=== PATIENT | male | born 1950 | race Caucasian/White ===

== ENCOUNTER → 2019-08-19 | Outpatient (CLI) | payer MEDICARE, OTHER ==
[~2019-08-19] MED LIST: ASPI325T8 PO; ATOR20TA58 PO; CALC-178 PO; CARV40CP PO; LISI-334 PO
== END | disposition home or self-care (01) ==
LOC: LAB 11:04
PROVIDERS: ATTEND Registered Nurse
DX: Z11.59 Encounter for screening for other viral diseases (principal)
CPT/HCPCS: C9803; U0003; 87426

== ENCOUNTER → 2019-08-22 | Day surgery (SDC) | payer MEDICARE, OTHER ==
[~2019-08-22] MED LIST changes: +IV RINGERS SOLUTION,LACTATED 1,000 ML IV SCH; +ONDANSETRON PF 4 MG/2 ML VIAL. IV PRN; +PROPOFOL 10,000 MCG/ML (20ML) VIAL IV ONE
[2019-08-22 11:35] VITALS: BP 137/72
--- NOTE | 2019-08-23 17:07 | PATHOLOGY ---
[facility] Accession Number: [id number] . 01 Material submitted: . colon - SIGMOID BIOPSY. Modifiers: sigmoid . 01 Clinical history: . Colon cancer screening . 02 Diagnosis: Colonic mucosa, sigmoid colon biopsies: - Focal active colitis. LBQ 08/23/2019 1522 Local . 02 Comment: Sections of the sigmoid colon biopsy reveal several segments of colonic mucosa showing focal active inflammation, the latter consisting of scattered foci of acute crypt neutrophilic injury. Features of a chronic destruction colitis, including crypt architectural distortion and basally oriented chronic inflammatory cell infiltrate are not identified. There are no granulomas. The findings may represent diverticular associated inflammation. There is no dysplasia or evidence of malignancy. (JPM/db; 08/23/2019) . 02 Electronically signed: . Jayson Bailey MD, Pathologist NPI- [id number] . 01 Gross description: . The specimen is received in formalin, labeled "Roel Santos, sigmoid biopsy". Received are three segments of pale parker soft tissue ranging in size from 0.3 to 0.4 cm in maximum dimensions. The specimen is submitted entirely in cassette A1. (CAA; 08/22/2019) QA/QA 08/22/2019 1653 Local . 02 Pathologist provided ICD-10: K52.9 . 02 CPT . 329524 Specimen Comment: A courtesy copy of this report has been sent to [phone] Specimen Comment: [id number] Specimen Comment: Report sent to DR COLVIN / DR LUCAS Performed at: 01 [facility] [address], [place], [place] [id number] MD Estuardo Koehler MD Phone: [phone] Performed at: 02 [facility] [address], [place] [id number] MD Jayson Bailey MD Phone: [phone]
--- NOTE | 2019-08-27 13:15 | NUR ---
AFTER SPEAKING TO FOUND OUT THAT PT WAS ADMITTED TO THE HOSPITAL. I CALLED DR. COLVIN'S OFFICE JUST TO BE SURE THEY WERE AWARE OF THE PTS ADMISSION AND VALERIE SAID THEY WERE THE ONES WHO SET UP THE CT SCAN AND ADMISSION SO THE OFFICE WAS AWARE OF THE SITUATION.
== END | disposition home or self-care (01) ==
LOC: SURG 09:24
PROVIDERS: ATTEND Internal Medicine Gastroenterology
DX: K57.32 Diverticulitis of large intestine without perforation or abscess without bleeding (principal); K64.8 Other hemorrhoids; K57.30 Diverticulosis of large intestine without perforation or abscess without bleeding; K51.80 Other ulcerative colitis without complications; E78.00 Pure hypercholesterolemia, unspecified; I10 Essential (primary) hypertension; Z79.82 Long term (current) use of aspirin; Z79.899 Other long term (current) drug therapy; Z88.8 Allergy status to other drugs, medicaments and biological substances; Z87.891 Personal history of nicotine dependence; Z98.890 Other specified postprocedural states; Z88.1 Allergy status to other antibiotic agents
CPT/HCPCS: 45380; J2704; J7120

== ENCOUNTER 2020-11-20 12:29 | Emergency (ER) | payer MEDICARE, OTHER ==
[~2020-11-20] VITALS: Ht 194.3 cm; Wt 72.7 kg
[~2020-11-20 12:29] MED LIST changes: -IV RINGERS SOLUTION,LACTATED 1,000 ML IV SCH; -LISI-334 PO; +LISI20TA18 PO; -ONDANSETRON PF 4 MG/2 ML VIAL. IV PRN; -PROPOFOL 10,000 MCG/ML (20ML) VIAL IV ONE
[2020-11-20] MEDS ORDERED: MORPHINE SULFATE 4 MG/ML DISP.SYRIN. IV ONE (13:00)
[2020-11-20 13:05] LABS: BILIRUBIN,URINE NEG (NEG); CLARITY,URINE CLEAR; COLOR,URINE YELLOW; GLUCOSE,URINE NEG (NEG); NITRITE,URINE NEG (NEG); UROBILINOGEN,URINE 0.2 mg/dL (0.2 mg/dL)
--- NOTE | 2020-11-20 13:05 | PHYS DOC ---
General Adult EDM: Chief Complaint: ABDOMINAL PAIN HPI: HPI: Patient is a 70 year old male who presents with abdominal pain. Started last night prior to bed. He was up urinating frequently throughout the night. Denies any dysuria or hematuria. This morning the abdominal pain continued and he had very poor appetite. He describes it as around his bellybutton. Does not radiate. Has been constant since onset. Made worse by movement. Worse with bumps in the road. Potentially small amount of chills but does not think he has a fever. He has had previous abdominal hernia surgeries with mesh. Last p.o. intake was clear liquids approximately at approximately noon. No blood thinning medications. Last stool was 2 hours ago and was normal. No blood in the stool or melena. Review of Systems: Review of Systems: Constitutional: Denies fever. ?chills Eyes: Denies change in visual acuity HENT: Denies nasal congestion or sore throat Respiratory: Denies cough or shortness of breath Cardiovascular: Denies chest pain or edema GI: Reports abdominal pain, nausea, poor appetite. No vomiting or bloody stools. : Denies dysuria Musculoskeletal: Denies back pain or joint pain Integument: Denies rash Neurologic: Denies headache, focal weakness or sensory changes Endocrine: Denies polyuria or polydipsia Lymphatic: Denies swollen glands Psychiatric: Denies depression or anxiety Allergies: Allergies: Allergies Coded Allergies Type Severity Reaction Last Updated Verified amoxicillin Allergy Unknown 08/13/19 Yes metoprolol Allergy Unknown 08/13/19 Yes Physical Exam: PE: Constitutional: Nontoxic. Appears mildly uncomfortable.. [] HENT: Normocephalic, atraumatic, Eyes: PERRLA, EOMI, conjunctiva normal, no discharge. [] Neck: Normal range of motion, no tenderness, supple, no stridor. [] Cardiovascular:Heart rate regular rhythm, no murmur [] Lungs & Thorax: Bilateral breath sounds clear to auscultation [] Abdomen: Rigid abdomen. Unable to relax abdominal sloan. Voluntary/involuntary guarding. Diffusely tender, but most tender in the right lower quadrant.. [] Skin: Warm, dry, no erythema, no rash. [] Back: No tenderness, no CVA tenderness. [] Extremities: No tenderness, no cyanosis, no clubbing, ROM intact, no edema. [] Neurologic: Alert and oriented X 3, normal motor function, normal sensory function, no focal deficits noted. [] Psychologic: Affect normal, judgement normal, mood normal. [] EKG: EKG: [] Radiology/Procedures: Radiology/Procedures: [] Heart Score: C/O Chest Pain: No Risk Factors: Risk Factors: DM, Current or recent (<one month) smoker, HTN, HLP, family history of CAD, obesity. Risk Scores: Score 0 - 3: 2.5% MACE over next 6 weeks - Discharge Home Score 4 - 6: 20.3% MACE over next 6 weeks - Admit for Clinical Observation Score 7 - 10: 72.7% MACE over next 6 weeks - Early Invasive Strategies Course & Med Decision Making: Course & Med Decision Making Pertinent Labs and Imaging studies reviewed. (See chart for details) Patient is 70-year-old male who presents with abdominal pain, urinary frequency. On exam he has a component of abdominal rigidity, guarding, rebound with diffuse tenderness. We will obtain CT, labs, and provide analgesia. 1304 CT shows perforated diverticulitis with associated abscess. Penicillin allergy, so CTX and flagyl chosen. 1L NS ordered. He tells me he had a perforation that was managed non-operatively last year at [facility]. He would prefer to be hospitalized there. Working on transfer now. [address] Rowan to [facility]. 1613 Nikkie Disclaimer: Nikkie Disclaimer: This electronic medical record was generated, in whole or in part, using a voice recognition dictation system. Departure Departure: Impression: Primary Impression: Diverticulitis of intestine with perforation and abscess Disposition: 02 SHORT TERM HOSPITAL Condition: STABLE Referrals: JEFF LUCAS MD (PCP) ROBERTO CARLOS WILKS MD Nov 20, 2020 13:04
[2020-11-20 13:13] LABS: BACTERIA,URINE 0 /HPF (0-FEW)
[2020-11-20 13:14] LABS: HYALINE CASTS, URINE OCC /HPF; SQUAMOUS EPITHELIAL CELL,UR OCC /LPF
[2020-11-20] MEDS ORDERED: IOHEXOL 300 MG/ML 75 ML VIAL. IV ONE (13:15)
[2020-11-20] MEDS ORDERED: CONTRAST GIVEN. MC PRN (13:15)
[2020-11-20 13:33] LABS: BASO % 0 % (0-3); EOS % 0 % (0-3); HEMATOCRIT 41.2 % (39.0-53.0); HEMOGLOBIN 14.1 g/dL (13.0-17.5); LYMPH # 0.8 x10^3/uL (1.0-4.8); LYMPH % 7 % (24-48); MEAN CORPUSCULAR HEMOGLOBIN 35 pg (25-35); MEAN CORPUSCULAR HGB CONC 34 g/dL (31-37); MEAN CORPUSCULAR VOLUME 103 fL (79-100); MONO # 0.9 x10^3/uL (0.0-1.1); MONO % 7 % (0-9); NEUT # 10.6 x10^3uL (1.8-7.7); NEUT % 86 % (31-73); PLATELET COUNT 179 x10^3/uL (140-400); RED BLOOD COUNT 4.01 x10^6/uL (4.30-5.70); RED CELL DISTRIBUTION WIDTH 13.6 % (11.5-14.5); WHITE BLOOD COUNT 12.3 x10^3/uL (4.0-11.0)
[2020-11-20 13:39] LABS: CALCIUM 9.2 mg/dL (8.5-10.1); GFR 74.1; POTASSIUM 3.7 mmol/L (3.5-5.1)
[2020-11-20 13:45] LABS: ALBUMIN 3.6 g/dL (3.4-5.0); ALBUMIN/GLOBULIN RATIO 1.1 (1.0-1.7); TOTAL PROTEIN 6.9 g/dL (6.4-8.2)
[2020-11-20] MEDS ORDERED: IV NORMAL SALINE 1,000ML 1,000 ML IV ONE (14:45)
[2020-11-20] MEDS ORDERED: IV NORMAL SALINE 50ML 50 ML ONE (14:49)
[2020-11-20] MEDS ORDERED: cefTRIAXone SODIUM 1 GM VIAL ONE (14:49)
--- NOTE | 2020-11-20 14:49 | RAD ---
CT ABDOMEN+PELVIS W History: diffuse abd pain, most tender Comparison: None. Technique: After administration of intravenous contrast, helical CT of the abdomen and pelvis was per formed from the lung bases through the ischial tuberosities. Coronal and sagittal reconstructions wer e obtained. 75 mL of Omnipaque 300 were used. One or more of the following dose reduction techniques were utilized: Automated exposure control (AEC), Adjustment of mA and/or kV according to patient size , Use of iterative reconstruction technique such as ASiR, CT scan done according to ALARA and image g ently/image wisely Abdomen Findings: The visualized lung bases are clear. The liver, gallbladder, pancreas, spleen, and bilateral adrenal glands are normal. Symmetric renal enhancement. There is no focal renal mass. There is no hydronephrosis. Sigmoid predominant diverticulosis. Inflammation along the sigmoid colon and involving adjacent small bowel loops with a 1.9 x 1.0 cm abscess (series 2 image 76). Multiple foci of free air throughout th is region and elsewhere throughout the abdomen. Enhancing soft tissue fullness at the base of the cecum. Appendix is normal. There is no mesenteric or retroperitoneal adenopathy. The abdominal aorta is normal in caliber. Moderate aortoiliac atherosclerotic disease. Pelvis Findings: Mild wall thickening along the dome of the bladder, which is likely reactive to nearby inflammatory p rocess. There is no pelvic or inguinal adenopathy. Degenerative changes of the spine. IMPRESSION: 1. Inflammation in the pelvis around the sigmoid colon and adjacent small bowel loops is probably sec ondary to acute diverticulitis, although the inflammation is slightly more conspicuous along the smal l bowel. There is a 1.9 cm abscess as well as pneumoperitoneum, indicating perforation. 2. Enhancing soft tissue fullness at the base of the cecum. Direct visualization is recommended. FOR INTERNAL CODING PURPOSES Critical result: Findings discussed with Dr. Carter at 11/20/2020 2:40 PM. RESULT CODE: (C) Electronically signed by: Dudley Webster MD (11/20/2020 2:46 PM) [facility]
[2020-11-20 15:48] VITALS: BP 143/67
== END 2020-11-20 17:06 | disposition short-term general hospital (02) ==
LOC: ER 12:29
DX: K57.80 Diverticulitis of intestine, part unspecified, with perforation and abscess without bleeding (principal); Z20.822 Contact with and (suspected) exposure to COVID-19; Z88.1 Allergy status to other antibiotic agents; Z88.8 Allergy status to other drugs, medicaments and biological substances
CPT/HCPCS: 36415; 74177; 80053; 81001; 83690; 85025; 87426; 96365; 96375; 99285; C9803; J0696; J2270; J3490; J7030; Q9967; U0003; 96374